=== PATIENT | male | born 1975 | race Caucasian/White ===

== ENCOUNTER 2017-11-29 06:58 | Emergency (ER) | payer OTHER ==
[2017-11-29 07:06] VITALS: BP 138/83; Ht 175.3 cm
== END 2017-11-29 08:10 | disposition home or self-care (01) ==
LOC: ED 06:58
DX: L02.811 Cutaneous abscess of head [any part, except face] (principal); H00.016 Hordeolum externum left eye, unspecified eyelid
CPT/HCPCS: 90715; J0696